=== PATIENT | female | born 1950 | race Hispanic/Latino ===

== ENCOUNTER 2020-01-17 11:26 | Inpatient (IN) | payer OTHER ==
--- NOTE | 2020-01-17 12:02 | RAD REPORT ---
EXAM DESCRIPTION: CT - Head Brain Wo Cont - 01/17/2020 11:54 am CLINICAL HISTORY: unresponsive Headache, drowsiness COMPARISON: No comparisons TECHNIQUE: All CT scans are performed using dose optimization technique as appropriate and may inclu de automated exposure control or mA/KV adjustment according to patient size. FINDINGS: No intracranial hemorrhage, hydrocephalus or extra-axial fluid collection.Mild generalized brain atrophy.No areas of brain edema or evidence of midline shift. The paranasal sinuses and mastoids are clear. The calvarium is intact. IMPRESSION: No acute intracranial abnormality.
--- NOTE | 2020-01-17 12:03 | RAD REPORT ---
EXAM DESCRIPTION: RAD - Chest Single View - 01/17/2020 11:58 am CLINICAL HISTORY: Syncope/collapse Chest pain. COMPARISON: No comparisons FINDINGS: Portable technique limits examination quality. Bilateral pulmonary opacities are present, greater on the left, which may represent interstitial pneu monitis or edema. Tip of the ET tube is just above the kishor. Enteric tube coils in the stomach. The heart is upper limit normal in size.
[2020-01-17 12:07] LABS: Absolute Lymphocytes (CBC) 2.7 K/uL (0.7-4.9); Basophils % 0.5 % (0-1.3); Lymphocytes % 22.9 % (15.3-44.8); MPV 8.5 fL (7.6-11.3); RBC Red Blood Cell Count 4.51 M/uL (3.86-4.86)
[2020-01-17 12:11] LABS: Protime INR 1.01
[2020-01-17] MEDS ORDERED: propofoL 1,000 MG/100 ML VIAL IV ONE (12:39)
[2020-01-17 12:41] LABS: ALT/SGPT 31 U/L (12-78); AST/SGOT 60 U/L (15-37); Albumin 2.3 g/dL (3.4-5.0); Alkaline Phosphatase 155 U/L (45-117); BUN Blood Urea Nitrogen 15 mg/dL (7-18); Bicarbonate 21 mmol/L (21-32); Bilirubin Direct < 0.1 mg/dL (0-0.2); Bilirubin Total 0.2 mg/dL (0.2-1.0); Glucose Level 116 mg/dL (74-106); NT PRO-BNP 17365 pg/mL (<125); Potassium 4.3 mmol/L (3.5-5.1); Sodium Level 140 mmol/L (136-145); Troponin (Emerg Dept Use Only) 0.32 ng/mL (0.0-0.045)
[2020-01-17 13:15] LABS: Arterial Blood Carboxyhemoglob 0.4 % (0-1.5); Blood Gas Oxyhemoglobin 94.6 % (94-97)
[2020-01-17] MEDS ORDERED: HEPARIN/D5W 25,000 UNIT/500 ML BAG IV ONE (13:28)
--- NOTE | 2020-01-17 14:41 | EDPHYS ---
Physician Documentation [facility] Name: Zuly Long Age: 69 yrs Sex: Female : 1950 Arrival Date: 01/17/2020 Time: 11:27 Bed 3 Private MD: ED Physician Esau Wade HPI: 01/16 19:03 This 69 yrs old Female presents to ER via EMS with complaints of Unresponsive, kdr Breathing Difficulty. 19:03 The patient has shortness of breath with light activity. Onset: The symptoms/episode kdr began/occurred suddenly, just prior to arrival. Duration: The symptoms are continuous, and are steadily getting worse. The patient's shortness of breath has no apparent modifying factors. The patient's shortness of breath is aggravated by exertion. Associated signs and symptoms: Pertinent positives:. The patient was out running errands when she suddenly became SOB and then collapsed. EMS had arrived by then and promptly intubated her with little trouble. Her VS improved. On arrival, the was intubated with VS as noted in the nursing notes. Historical: - Allergies: 11:53 No Known Allergies; em - Home Meds: 11:38 carvedilol 12.5 mg oral tab [Active]; pantoprazole 40 mg oral TbEC [Active]; em 17:12 levothyroxine 50 mcg tab [Active]; sulfasalazine 500 mg Oral tab [Active]; Vitamin D em Oral [Active]; - PMHx: 11:38 Hypertension; COPD; em - Immunization history:: Adult Immunizations unknown. - Social history:: Smoking status: unknown. ROS: 19:03 Constitutional: Negative for fever, chills, and weight loss. kdr 19:03 Unable to obtain ROS due to obtunded state, patient is on ventilator. Exam: 12:00 ECG was reviewed by the Attending Physician. kdr 19:03 Constitutional: This is a well developed, well nourished patient who is awake, alert, kdr and in no acute distress. Head/Face: Normocephalic, atraumatic. Eyes: Pupils equal round and reactive to light, extra-ocular motions intact. Lids and lashes normal. Conjunctiva and sclera are non-icteric and not injected. Cornea within normal limits. Periorbital areas with no swelling, redness, or edema. Neck: Trachea midline, no thyromegaly or masses palpated, and no cervical lymphadenopathy. Supple, full range of motion without nuchal rigidity, or vertebral point tenderness. No Meningismus. Chest/axilla: Normal chest wall appearance and motion. Nontender with no deformity. No lesions are appreciated. Cardiovascular: Regular rate and rhythm with a normal S1 and S2. No gallops, murmurs, or rubs. Normal PMI, no JVD. No pulse deficits. Abdomen/GI: Soft, non-tender, with normal bowel sounds. No distension or tympany. No guarding or rebound. No evidence of tenderness throughout. Back: No spinal tenderness. No costovertebral tenderness. Full range of motion. Skin: Warm, dry with normal turgor. Normal color with no rashes, no lesions, and no evidence of cellulitis. MS/ Extremity: Pulses equal, no cyanosis. Neurovascular intact. Full, normal range of motion. 19:03 Respiratory: the patient does not display signs of respiratory distress, Respirations: On vent, Breath sounds: rales, rhonchi, that are moderate, are heard diffusely. Vital Signs: 11:28 BP 145 / 69; Pulse 106; Resp 22 A; Pulse Ox 98% on ETT vent; Weight 68.04 kg; em 12:27 Temp 97.2(R); dh3 12:30 BP 163 / 75; Pulse 101; Resp 14; Pulse Ox 100% on 100% FiO2 ETT vent; hb 13:00 BP 124 / 52; Pulse 66; Resp 14; Pulse Ox 99% on 100% FiO2 ETT vent; hb 13:30 BP 139 / 61; Pulse 81; Resp 14; Pulse Ox 97% on 60% FiO2 ETT vent; hb 14:00 BP 112 / 57; Pulse 64; Resp 14; Pulse Ox 99% on 60% FiO2 ETT vent; hb 15:00 BP 145 / 57; Pulse 75; Resp 14 A; Pulse Ox 100% on 60% FiO2 ETT vent; em 15:55 BP 181 / 65; Pulse 93; Resp 14; Pulse Ox 99% on 60% FiO2 ETT vent; em 17:12 BP 166 / 62; Pulse 86; Resp 18; Pulse Ox 100% on 60% FiO2 ETT vent; em 18:00 BP 153 / 63; Pulse 81; Resp 18; Pulse Ox 98% on 40% FiO2 ETT vent; em 19:14 BP 162 / 58; Pulse 79; Resp 16; Pulse Ox 98% on 60% FiO2 ETT vent; mg2 MDM: 14:41 Patient medically screened. kdr 19:03 Data reviewed: vital signs, nurses notes, lab test result(s), radiologic studies. kdr Counseling: I had a detailed discussion with the patient and/or guardian regarding: the historical points, exam findings, and any diagnostic results supporting the discharge/admit diagnosis, lab results, radiology results. 01/16 11:31 Order name: Basic Metabolic Panel; Complete Time: 12:57 kdr 01/16 11:31 Order name: CBC with Diff; Complete Time: 12:23 kdr 01/16 11:31 Order name: LFT's; Complete Time: 12:57 kdr 01/16 11:31 Order name: Magnesium; Complete Time: 12:57 kdr 01/16 11:31 Order name: NT PRO-BNP; Complete Time: 12:57 kdr 01/16 11:31 Order name: PT-INR; Complete Time: 12:23 kdr 01/16 11:31 Order name: Troponin (emerg Dept Use Only); Complete Time: 12:57 kdr 01/16 13:00 Order name: ABG; Complete Time: 14:21 eb 01/16 14:46 Order name: SARS-COV-2 RT PCR EDMS 01/16 16:12 Order name: CBC with Automated Diff EDMS 01/16 16:12 Order name: CBC with Automated Diff EDMS 01/16 16:13 Order name: Comprehensive Metabolic Panel EDMS 01/16 16:13 Order name: Comprehensive Metabolic Panel EDMS 01/16 16:13 Order name: Lactate EDMS 01/16 16:13 Order name: Lactate EDMS 01/16 16:13 Order name: Lipid Profile EDMS 01/16 16:13 Order name: Lipid Profile EDMS 01/16 16:13 Order name: Magnesium EDMS 01/16 16:13 Order name: Magnesium EDMS 01/16 16:13 Order name: NT PRO-BNP EDMS 01/16 16:13 Order name: NT PRO-BNP EDMS 01/16 16:13 Order name: Phosphorus EDMS 01/16 16:13 Order name: Phosphorus EDMS 01/16 16:13 Order name: Protime (+INR) EDMS 01/16 16:13 Order name: Protime (+INR) [facility] 01/16 16:13 Order name: PTT, Activated Partial Thromb [facility] 01/16 16:13 Order name: PTT, Activated Partial Thromb [facility] 01/16 16:13 Order name: Troponin I [facility] 01/16 16:13 Order name: Troponin I [facility] 01/16 11:31 Order name: XRAY Chest (1 view); Complete Time: 12:23 kdr 01/16 11:31 Order name: EKG; Complete Time: 11:31 kdr 01/16 11:31 Order name: Cardiac monitoring; Complete Time: 11:47 kdr 01/16 11:31 Order name: EKG - Nurse/Tech; Complete Time: 12:02 kdr 01/16 11:31 Order name: IV Saline Lock; Complete Time: 11:47 kdr 01/16 11:31 Order name: Labs collected and sent; Complete Time: 11:47 kdr 01/16 11:31 Order name: O2 Per Protocol; Complete Time: 11:47 kdr 01/16 11:31 Order name: O2 Sat Monitoring; Complete Time: 11:46 kdr 01/16 11:31 Order name: CT Head Brain wo Cont; Complete Time: 12:23 kdr 01/16 14:55 Order name: CT Chest For PE Angio [facility] 01/16 16:12 Order name: CONS Physician Consult [facility] 01/16 16:12 Order name: NPO [facility] 01/16 16:13 Order name: Troponin I [facility] 01/16 16:14 Order name: Respiratory Therapy Consult [facility] 01/16 17:50 Order name: Restraint:Non-Violent; Complete Time: 18:01 [facility] 01/16 19:28 Order name: Ptt, Activated mg2 EC:00 Rate is 104 beats/min. Rhythm is regular, Sinus tachycardia with No ectopy. QRS Isabella is kdr Normal. MA interval is normal. ST Segment is depressed in leads I, II, 1-2mm. ST Segment is depressed in leads V4, V5, V6, 2-5mm. Clinical impression: Cardiac ischemia. Administered Medications: 12:31 Drug: Propofol 5 mcg/kg/min Route: IV; Rate: calculated rate; Site: left antecubital; hb 19:07 Follow up: Response: Patient is sedated; IV Status: Infusion continued upon admission em 13:26 Drug: Heparin ([place] Drip) 12 units/kg/hr - (HEParin 82295 units, D5W 500 ml) em {Co-Signature: hb (Amber Cash RN).} Route: IV; Rate: calculated rate; Site: right hand; 19:07 Follow up: IV Status: Infusion continued upon admission em Disposition: 19:03 Critical Care:. kdr Disposition: 01/17/20 14:41 Hospitalization ordered by Marija Benitez for Inpatient Admission. Preliminary diagnosis are Non-ST elevation (NSTEMI) myocardial infarction, Acute pulmonary edema. - Bed requested for Intensive Care Unit. - Status is Inpatient Admission. mg2 - Condition is Critical. - Problem is new. - Symptoms have improved. Critical care time excluding procedures: 19:03 Critical care time: Bedside Care: 35 minutes, Consultation: 15 minutes, Family kdr Intervention: 10 minutes. Total time: 60 minutes Signatures: Dispatcher [employer] Michelle Galaviz RN RN dw Rittger, Kevin, MD MD [facility] Joseph Camarena RN RN em Amber Cash RN RN Adrián Whiteside RN RN mg2 Amber antony Corrections: (The following items were deleted from the chart) 11:53 11:38 Allergies: Unable to obtain; em em 12:50 12:24 CORONAVIRUS+MR.LAB.BRZ ordered. [facility] 16:23 14:41 Hospitalization Ordered by Marija Benitez MD for Inpatient Admission. Preliminary dw diagnosis is Non-ST elevation (NSTEMI) myocardial infarction; Acute pulmonary edema. Bed requested for Intensive Care Unit. Status is Inpatient Admission. Condition is Critical. Problem is new. Symptoms have improved. [facility] 19:37 16:23 01/17/2020 14:41 Hospitalization Ordered by Marija Benitez MD for Inpatient mg2 Admission. Preliminary diagnosis is Non-ST elevation (NSTEMI) myocardial infarction; Acute pulmonary edema. Bed requested for Intensive Care Unit. Status is Inpatient Admission. Condition is Critical. Problem is new. Symptoms have improved. dw
--- NOTE | 2020-01-17 14:41 | ER ---
Nurse's Notes [facility] Name: Zuly [facility] Age: 69 yrs Sex: Female : 1950 Arrival Date: 01/17/2020 Time: 11:27 Bed 3 Private MD: Diagnosis: Non-ST elevation (NSTEMI) myocardial infarction;Acute pulmonary edema Presentation: 01/16 11:27 Acuity: JOE 1 ss 11:28 Chief complaint: EMS states: called out for shortness of breath, on scene she was em having 1-2 word sentences and was placed on the non re breather, 70's % on RA, while on the non re breather pt went unresponsive, was intubated in the field with a 6.5 tube, tube is 22 at the teeth, pt also became bradycardic in the 40's around 1057, pt was sedated with 250 mg ketamine, 50 mcg fentynal, 80 mg succinycholine, 80 mg rocuronium, EMS also reports right sided incisor popped out while intubating, 16 Fr OGT placed by EMS. Coronavirus screen: Client denies travel out of the [place] in the last 14 days. Initial Sepsis Screen: Does the patient meet any 2 criteria? HR > 90 bpm. Does the patient have a suspected source of infection? No. Patient's initial sepsis screen is negative. Risk Assessment: Do you want to hurt yourself or someone else? Unable to obtain. Onset of symptoms was January 17, 2020. 11:28 Method Of Arrival: EMS: [facility] em 11:28 Acuity: JOE 1 em Historical: - Allergies: 11:53 No Known Allergies; em - Home Meds: 11:38 carvedilol 12.5 mg oral tab [Active]; pantoprazole 40 mg oral TbEC [Active]; em 17:12 levothyroxine 50 mcg tab [Active]; sulfasalazine 500 mg Oral tab [Active]; Vitamin D em Oral [Active]; - PMHx: 11:38 Hypertension; COPD; em - Immunization history:: Adult Immunizations unknown. - Social history:: Smoking status: unknown. Screenin:28 Abuse screen: Denies threats or abuse. Nutritional screening: No deficits noted. em Tuberculosis screening: No symptoms or risk factors identified. Fall Risk None identified. Assessment: 11:28 General: Appears uncomfortable, Behavior is unresponsive. Pain: Unable to use pain em scale. Patient is intubated. Neuro: Level of Consciousness is unresponsive. Cardiovascular: Patient's skin is warm and dry. Rhythm is sinus rhythm. Respiratory: Airway via oral intubation Respiratory effort is even, Respiratory pattern is regular, Ventilator assessment: ET Tube: 6.5 23 cm at the teeth Breath sounds with wheezes bilaterally. Derm: Skin is intact. 11:28 GI: Oral gastric tube in place. em 11:42 Reassessment: wheeled to CT via stretcher. em 12:29 Reassessment: 2 warm blankets placed on pt. em 12:35 Reassessment: covid sent to lab. em 13:25 Reassessment: pt bucking the vent. increased the propofol to 10 mcg/kg/min. em 13:41 Reassessment: No changes from previously documented assessment. pt soiled bed, changed em linen and applied new gown. 14:40 Reassessment: Patient appears in no apparent distress at this time. Patient and/or em family updated on plan of care and expected duration. Pain level reassessed. 15:00 Reassessment: Dr. Perry at bedside. em 15:25 Reassessment: wheeled to CT via stretcher by me and RT. em 16:09 Reassessment: pt more awake moving arms and legs, increased propofol to 20 mcg/kg/min, em pending results from the CT, will go up to ICU after shift change. 17:14 Reassessment: Patient appears in no apparent distress at this time. Patient and/or em family updated on plan of care and expected duration. Pain level reassessed. General: Appears in no apparent distress. comfortable, Behavior is unresponsive. Pain: Unable to use pain scale. Patient is intubated. Neuro: Level of Consciousness is unresponsive. Cardiovascular: Patient's skin is warm and dry. Rhythm is sinus rhythm. Respiratory: Airway via oral intubation Ventilator assessment: ET Tube: 6.5 23 cm Ventilator Mode: Assist Control (AC) Tidal Volume: 460 Respiratory Rate: 14 FiO2: 40% PEEP: 5 HOB > 30 degrees. GI: Oral gastric tube in place. Derm: Skin is intact, is fragile, is thin, Skin is pink, warm \T\ dry. 17:46 Reassessment: pt reaching for the ET tube, increased the propofol to 30 mcg/kg/min, Dr. lyndsey Wade notified, received order for non-violent restraints. 18:37 Reassessment: pt sedated and intubated, skin pink warm and dry, respirations even and em unlabored. 19:36 Reassessment: RT present during the transfer. mg2 Vital Signs: 11:28 BP 145 / 69; Pulse 106; Resp 22 A; Pulse Ox 98% on ETT vent; Weight 68.04 kg; em 12:27 Temp 97.2(R); dh3 12:30 BP 163 / 75; Pulse 101; Resp 14; Pulse Ox 100% on 100% FiO2 ETT vent; hb 13:00 BP 124 / 52; Pulse 66; Resp 14; Pulse Ox 99% on 100% FiO2 ETT vent; hb 13:30 BP 139 / 61; Pulse 81; Resp 14; Pulse Ox 97% on 60% FiO2 ETT vent; hb 14:00 BP 112 / 57; Pulse 64; Resp 14; Pulse Ox 99% on 60% FiO2 ETT vent; hb 15:00 BP 145 / 57; Pulse 75; Resp 14 A; Pulse Ox 100% on 60% FiO2 ETT vent; em 15:55 BP 181 / 65; Pulse 93; Resp 14; Pulse Ox 99% on 60% FiO2 ETT vent; em 17:12 BP 166 / 62; Pulse 86; Resp 18; Pulse Ox 100% on 60% FiO2 ETT vent; em 18:00 BP 153 / 63; Pulse 81; Resp 18; Pulse Ox 98% on 40% FiO2 ETT vent; em 19:14 BP 162 / 58; Pulse 79; Resp 16; Pulse Ox 98% on 60% FiO2 ETT vent; mg2 ED Course: 11:27 Patient arrived in ED. em 11:28 Patient has correct armband on for positive identification. Placed in gown. Bed in low em position. Call light in reach. Side rails up X2. bolt threader on. Pulse ox on. NIBP on. 11:29 Esau Wade MD is Attending Physician. kdr 11:30 Maintain EMS IV. Dressing intact. Good blood return noted. Site clean \T\ dry. Gauge \T\ em site: 20 L AC. 11:30 Garcia cath inserted, using sterile technique, 16 Fr., by ED staff, balloon inflated, to em gravity drainage. 11:36 Triage completed. ss 11:38 Arm band placed on. em 11:46 Joseph Camarena, RN is Primary Nurse. em 11:54 CT Head Brain wo Cont In Process Unspecified. EDMS 11:58 XRAY Chest (1 view) In Process Unspecified. EDMS 12:00 Inbound Customer Service Agent office called/ Dr. Disla will call back. eb 12:02 EKG done, by ED staff, reviewed by Esau Wade MD. em 12:[address] Disla with Dr. Wade for patient consultation. eb 13:25 Inserted saline lock: 22 gauge in right hand, using aseptic technique. em 14:37 Marija Benitez MD is Hospitalizing Provider. kdr 15:39 CT Chest For PE Angio In Process Unspecified. EDMS 19:06 No provider procedures requiring assistance completed. Patient admitted, IV remains in em place. Restraints: 17:50 Non-Violent Restraint: Order obtained. Initiated on January 17, 2020 at 17:50 em Actions/Behavior observed: Confused/disoriented, has impaired decision making, repeated attempts to remove artifical airway/mechanical resp support, Mental status: confused, Cognition: poor judgement, Circulation: Within defined parameters (based on Cardiovascular assessment) Skin integrity: Within defined parameters (based on Integumentary assessment) Range of Motion (ROM): performed. Restraint status: Side rails up x 4 Started. Soft wrist restraint (Right) Started. Soft wrist restraint (Left) Started. Administered Medications: 12:31 Drug: Propofol 5 mcg/kg/min Route: IV; Rate: calculated rate; Site: left antecubital; hb 19:07 Follow up: Response: Patient is sedated; IV Status: Infusion continued upon admission em 13:26 Drug: Heparin ([place] Drip) 12 units/kg/hr - (HEParin 37152 units, D5W 500 ml) em {Co-Signature: hb (Amber Cash RN).} Route: IV; Rate: calculated rate; Site: right hand; 19:07 Follow up: IV Status: Infusion continued upon admission em Outcome: 14:41 Decision to Hospitalize by Provider. kdr 19:06 Admitted to ICU em 19:06 Condition: stable 19:06 Instructed on the need for admit, Demonstrated understanding of instructions. 19:35 Admitted to ICU accompanied by nurse, accompanied by tech, via stretcher, room 6, with mg2 oxygen, on monitor, with chart, Report called to JASON Marie 19:35 Condition: stable 19:35 Instructed on the need for admit, Demonstrated understanding of instructions. 19:37 Patient left the ED. mg2 Signatures: Dispatcher [employer] EDCA Esau Wade MD MD [facility] Joseph Camarena RN RN Cathi Baltazar RN RN Amber Cash RN RN Fatmata Del Castillo [facility] Michele, RN RN mg2 Amber Cash RN Corrections: (The following items were deleted from the chart) 11:53 11:38 Allergies: Unable to obtain; em em 12:50 12:48 CORONAVIRUS+ drawn and sent. [address] 12:59 11:28 Chief complaint: EMS states: called out for shortness of breath, on scene she was em having 1-2 word sentences and was placed on the non re breather, while on the non re breather pt went unresponsive, was intubated in the field with a 6.5 tube, tube is 22 at the teeth, pt also became bradycardic in the 40's around 1057, pt was sedated with 150 mg ketamine, 50 mcg fentynal, 80 mg succinycholine, 80 mg rocuronium, EMS also reports right sided incisor popped out while intubating, 16 Fr OGT placed by EMS em
--- NOTE | 2020-01-17 16:03 | RAD REPORT ---
EXAM DESCRIPTION: CT - Chest For Pe Angio - 01/17/2020 3:39 pm CLINICAL HISTORY: sob COMPARISON: None. TECHNIQUE: Dynamically enhanced axial 3 mm thick images of the chest were obtained during administra tion of <100> mL Isovue 370 IV contrast. Coronal and oblique reconstruction images were generated and reviewed. Exam utilizes a protocol for optimal evaluation of pulmonary arterial tree. Maximum intensity projections 3D imaging was utilized All CT scans are performed using dose optimization technique as appropriate and may include automated exposure control or mA/KV adjustment according to patient size. FINDINGS: A pulmonary embolus is not seen. A thoracic aortic aneurysm is not noted. A pleural effusion is not seen. A pericardial effusion is not seen. Small bilateral pleural effusions with bilateral lower lobe atelectasis. Mild bilateral interstitial lung opacities. An endotracheal tube has its tip in the proximal right mainstem bronchus. A nasogastric tube is prese nt within the stomach. Tip abuts the posterior gastric wall. Bilateral lower neck masses. Left superior mediastinal mass. The trachea is shifted towards the left IMPRESSION: Negative for a pulmonary embolism. Mild bilateral interstitial lung opacities likely mild interstitial pulmonary edema An endotracheal tube has its tip in the proximal right mainstem bronchus. A nasogastric tube is present within the stomach. Tip abuts the posterior gastric wall. Bilateral thyroid masses. Left superior mediastinal mass. This may represent a thyroid goiter. Lympha denopathy probably is less likely. Nonemergent thyroid ultrasound recommended
[2020-01-17] MEDS ORDERED: ACETAMINOPHEN 500 MG TAB PO PRN (16:05)
[2020-01-17] MEDS ORDERED: ONDANSETRON 4 MG/2 ML VIAL IV PRN (16:05)
--- NOTE | 2020-01-17 16:20 | P.HP ---
Certification for Inpatient Patient admitted to: Inpatient With expected LOS: >2 Midnights Patient will require the following post-hospital care: None Practitioner: I am a practitioner with admitting privileges, knowledge of patient current condition, hospital course, and medical plan of care. Services: Services provided to patient in accordance with Admission requirements found in Title 42 Section 412.3 of the Code of Federal Regulations Patient History Date of Service: 01/17/20 Reason for admission: ACUTE RESPIRATORY FAILURE History of Present Illness: Patient is a 69-year-old female who comes into the hospital unresponsive. Patient was short of breath at home and having a hard time with her breathing. EMS was called to the patient's house and when they arrived patient was hypoxic with her oxygen saturation at 70%. Patient was given 100% non-rebreather and her oxygen saturations came up but patient became unresponsive. Patient requi red intubation on the field and was brought into the emergency room. Patient was worked up in the emergency room with CT imaging and started on antibiotics. CT imaging revealed bilateral pneumonia. Patient had COVID-19 testing and she was positive for COVID-19. Patient will be started on nebulizer therapy and steroids as well as antibiotic coverage. Will start patient on rim this severe in the morning. Discussed the case with Pulmonary and they will see the patient as well. At this time patient will be admitted to our intensive care unit in critical condition. Allergies No Known Allergies Allergy (Unverified 01/17/20 20:51) Home Medications: Carvedilol [Coreg] 12.5 mg PO BID 01/17/20 Cholecalciferol (Vitamin D3) [Vitamin D3] 1,250 mcg PO DAILY 01/17/20 Levothyroxine [Synthroid] 50 mcg PO [id number] 01/17/20 Pantoprazole [Protonix Tab] 40 mg PO DAILY 01/17/20 sulfaSALAzine [Sulfasalazine] 2 tab PO BID 01/17/20 - Past Medical/Surgical History -: Crohn's disease -: hypothyroidism -: hypertension Past Surgical History: Unable to obtain - Family History Father Family History: Reviewed- Non-Contributory - Social History Smoking Status: Never smoker Alcohol use: No CD- Drugs: No Review of Systems 10-point ROS is otherwise unremarkable Physical Examination - Vital Signs Temperature: 98 F Blood Pressure: 100/70 Pulse: 110 Respirations: 18 Pulse Ox (%): 70 - Physical Exam General: Other ( patient was intubated and sedated) HEENT: Atraumatic, EOMI, Sclerae nonicteric Neck: Supple, 2+ carotid pulse no bruit, No LAD, Without JVD or thyroid abnormality Respiratory: Diminished, Expiratory wheezes, Rhonchi/gurgles Cardiovascular: Regular rate/rhythm, Normal S1 S2, Systolic murmur Gastrointestinal: Normal bowel sounds, Soft and benign, Non-distended, No tenderness Musculoskeletal: No clubbing, No swelling, No tenderness Integumentary: No rashes Neurological: Abnormal gait, Abnormal speech, Abnormal strength, Abnormal tone, Abnormal sensation Lymphatics: No axilla or inguinal lymphadenopathy - Studies Laboratory Data (last 24 hrs) 01/17/20 12:00: PT 11.9, INR 1.01 01/17/20 12:00: WBC 11.8 H, Hgb 12.5, Hct 39.0, Plt Count 377 01/17/20 12:00: Sodium 140, Potassium 4.3, BUN 15, Creatinine 1.01, Glucose 116 H, Magnesium 2.0, Total Bilirubin 0.2, AST 60 H, ALT 31, Alkaline Phosphatase 155 H Assessment & Plan - Problems (Diagnosis) (1) Acute respiratory failure due to COVID-19 Current Visit: Yes Status: Acute (2) Hypoxemia Current Visit: Yes Status: Acute - Plan Plan: 1. continue ventilator support 2. continue with IV steroids 3. Zithromycin 250 mg IVPB daily 4. Lovenox 40 mg subcu q12h 5. pulmonary consultation for vent support 6. Check labs including ferritin, CRP, D-dimer, lactic acid, LDH, procalcitonin 7. monitor hemodynamics closely 8. sedation and pain control 9. GI prophylaxis Discharge Plan: Home Plan to discharge in: Greater than 2 days - Advance Directives Does patient have a Living Will: No Does patient have a Durable POA for Healthcare: No - Code Status/Comfort Care Code Status Assessed: Yes Code Status: Full Code Critical Care: Yes Time Spent Managing PTS Care (In Minutes): 55
[2020-01-17] MEDS: NA CHLORIDE 0.9% 1,000 ML IV SCH (17:00)
[2020-01-17] MEDS: ENOXAPARIN 40 MG/0.4 ML SQ SCH (17:00)
[2020-01-17] MEDS ORDERED: ENOXAPARIN 40 MG/0.4 ML SQ ONE (17:19)
[2020-01-17] MEDS ORDERED: METHYLPREDNISOLONE 125 MG INJ ONE (17:19)
[2020-01-17] MEDS ORDERED: NA CHLORIDE 0.9% 1,000 ML ONE (17:19)
[2020-01-17] MEDS: METHYLPREDNISOLONE 125 MG INJ IV SCH ×2 (18:00→23:38)
[2020-01-17] MEDS: IPRATROPIUM BROM 0.5MG/2.5ML NEB SCH (20:15)
[2020-01-17] MEDS: ALBUTEROL 2.5 MG/3 ML NEB SOL NEB SCH (20:15)
[2020-01-17] MEDS: CEFTRIAXONE/SWI 1gm 1 GM/10 ML SYR IVP SCH (20:39)
[2020-01-17] MEDS: AZITHROMYCIN IV 500 MG in NA CHLORIDE 0.9% 250 ML IVPB SCH (21:09)
[2020-01-17] MEDS: propofoL 1,000 MG/100 ML VIAL IV PRN (22:13)
[2020-01-17] MEDS ORDERED: FENTANYL CITR 100 MCG/2 ML IV PRN (22:24)
[2020-01-17] MEDS ORDERED: HALOPERIDOL LACT 5 MG/ML INJ IV PRN (22:24)
[2020-01-17] MEDS ORDERED: LORazepam 2 MG/ML VIAL IV PRN (22:24)
[2020-01-17] MEDS ORDERED: MIDAZOLAM HCL 2 MG/2 ML INJ IV PRN (22:24)
[2020-01-18] MEDS: ALBUTEROL 2.5 MG/3 ML NEB SOL NEB SCH ×4 (02:07→20:35)
[2020-01-18] MEDS: IPRATROPIUM BROM 0.5MG/2.5ML NEB SCH ×4 (02:07→20:35)
[2020-01-18] MEDS: propofoL 1,000 MG/100 ML VIAL IV PRN (04:47)
[2020-01-18 04:59] LABS: Protime INR 1.09
[2020-01-18 05:00] LABS: Absolute Lymphocytes (CBC) 0.8 K/uL (0.7-4.9); Basophils % 0.1 % (0-1.3); Hematocrit 43.2 % (36.0-45.0); Lymphocytes % 6.3 % (15.3-44.8); MPV 8.9 fL (7.6-11.3); RBC Red Blood Cell Count 5.05 M/uL (3.86-4.86)
[2020-01-18 05:12] LABS: Albumin 2.2 g/dL (3.4-5.0); Bilirubin Total 0.2 mg/dL (0.2-1.0); Magnesium 2.2 mg/dL (1.8-2.4); Phosphorus 3.8 mg/dL (2.5-4.9); Potassium 3.5 mmol/L (3.5-5.1); Protein, Total 6.9 g/dL (6.4-8.2)
[2020-01-18 05:13] LABS: Troponin I 1.05 ng/mL (0.0-0.045)
[2020-01-18 05:25] LABS: Arterial Blood Carboxyhemoglob 0.6 % (0-1.5); Blood O2 Saturation 96.7 % (92-98.5)
[2020-01-18] MEDS: METHYLPREDNISOLONE 125 MG INJ IV SCH (05:31)
[2020-01-18 05:32] LABS: Blood Morphology Comment NOT SEEN (NOT SEEN); Platelet Estimate ADEQ
[2020-01-18 05:57] VITALS: BMI 25.7
[2020-01-18] MEDS: NA CHLORIDE 0.9% 1,000 ML IV SCH (06:18)
[2020-01-18] MEDS ORDERED: Remdesivir 200 MG in NA CHLORIDE 0.9% 250 ML IV ONE (08:00)
--- NOTE | 2020-01-18 08:44 | RAD REPORT ---
EXAM DESCRIPTION: Aleyda Single View01/18/2020 6:45 am CLINICAL HISTORY: Shortness breath COMPARISON: January 17, 2020 FINDINGS: Endotracheal tube has its tip just above the kishor Nasogastric tube within the stomach The pulmonary edema has mostly resolved The heart remains enlarged
[2020-01-18] MEDS: ENOXAPARIN 40 MG/0.4 ML SQ SCH (09:00)
[2020-01-18] MEDS: AZITHROMYCIN IV 500 MG in NA CHLORIDE 0.9% 250 ML IVPB SCH (09:00)
[2020-01-18] MEDS: ASPIRIN 325 MG TAB PO SCH (09:00)
--- NOTE | 2020-01-18 09:08 | P.CNS ---
Date of Consult: 01/18/20 Reason for Consult: Respiratory failure Chief Complaint: ACUTE RESPIRATORY FAILURE History of Present Illness: Patient is 69 years of age and active smoker history of COPD came to the hospital unresponsive develop shortness of breath currently intubated chest x- ray show bilateral changes most likely she has heart failure troponins elevated BNP also significantly elevated Allergies No Known Allergies Allergy (Unverified 01/17/20 20:51) Home Medications: Carvedilol [Coreg] 12.5 mg PO BID 01/17/20 Cholecalciferol (Vitamin D3) [Vitamin D3] 1,250 mcg PO DAILY 01/17/20 Levothyroxine [Synthroid] 50 mcg PO [id number] 01/17/20 Pantoprazole [Protonix Tab] 40 mg PO DAILY 01/17/20 sulfaSALAzine [Sulfasalazine] 2 tab PO BID 01/17/20 - Past Medical/Surgical History -: Crohn's disease -: hypothyroidism -: hypertension -: COPD - Family History Father Family History: Reviewed- Non-Contributory - Social History Smoking Status: Unknown if ever smoked Alcohol use: No CD- Drugs: No Review of Systems Unremarkable Physical Examination Temp Pulse Resp BP Pulse Ox 96.6 F L 65 14 141/52 H 100 01/18/20 08:00 01/18/20 08:00 01/18/20 08:00 01/18/20 08:00 01/18/20 08:00 General: Mild distress Respiratory: Expiratory wheezes Cardiovascular: No edema, Normal S1 S2 Gastrointestinal: Normal bowel sounds, Soft and benign Musculoskeletal: No clubbing, No contractures Integumentary: No rashes, No significant lesion Laboratory Data (last 24 hrs) 01/17/20 12:00: PT 11.9, INR 1.01 01/17/20 12:00: WBC 11.8 H, Hgb 12.5, Hct 39.0, Plt Count 377 01/17/20 12:00: Sodium 140, Potassium 4.3, BUN 15, Creatinine 1.01, Glucose 116 H, Magnesium 2.0, Total Bilirubin 0.2, AST 60 H, ALT 31, Alkaline Phosphatase 155 H - Problems (1) Respiratory center failure Current Visit: Yes Status: Acute Plan: Patient is 69 years of age admitted with acute respiratory distress I suspect that she may had an ischemic event with heart failure for queen virus recommend Lasix bronchodilators and wean off the ventilator Consult EKG shows no ischemic changes apart from LVH CT scan reviewed no evidence of pulmonary embolism
[2020-01-18] MEDS: CEFTRIAXONE/SWI 1gm 1 GM/10 ML SYR IVP SCH ×2 (09:23→20:31)
[2020-01-18] MEDS: FAMOTIDINE 20 MG/2 ML VIAL IV SCH ×2 (09:24→20:31)
[2020-01-18] MEDS: ENOXAPARIN 60 MG/0.6 ML SQ SCH ×2 (09:24→20:32)
[2020-01-18] MEDS ORDERED: FUROSEMIDE 40 MG/4 ML VIAL IV ONE (10:30)
--- NOTE | 2020-01-18 12:22 | CON ---
Date of Consultation: 01/18/2020 Reason For Consultation: Elevated troponin and respiratory failure. History Of Present Illness: A 69-year-old female, who was brought into the hospital in an unresponsi ve state. Apparently, she had an episode of difficulty breathing and called ambulance where she was found hypoxic in the 70s, placed on non-rebreather and the patient became unresponsive, required intu bation in the field, brought into the emergency room, intubated. She was evaluated in the ER by EKG. There was no ST elevation, however, she had a significant LVH with repolarization abnormalities. T he patient was admitted to ICU and being weaned off the ventilator, evaluated her by bedtime now and she claimed that she had some chest pressure prior to the event, but she has no chest pain. Now, she is anxious to get the tube out and she has a presumptive positive COVID test, not confirmed. Past Medical History: As per the chart, Crohn disease, hypothyroidism, hypertension. Medications: Refer to reconciliation sheet for detailed list. Allergies: NO KNOWN DRUG ALLERGIES. Social History: Does not smoke or drink. Does not use any drugs. Review of Systems: All systems reviewed were negative except for mentioned in the HPI. Physical Examination: Vital Signs: Temperature is 98.4, pulse is 94, breathing at 16, blood pressure 153/56, saturating 99 %. General: This is a middle-aged female, appears anxious due to being on the vent while awake. Head and Neck: Pupils are equal and reactive to light. No JVD. No cyanosis. Neck: Supple. Thyroid not enlarged. Lungs: Crackles in both bases. No accessory muscle use or muscle retraction. Heart: Regular rate and rhythm. No extra sounds. Abdomen: Soft, nontender. Bowel sounds positive. No organomegaly. No masses or hernia. No rigidi ty or rebound. Extremities: No clubbing, cyanosis. Intact pulses. Skin: No rashes. Neurologic: Alert, awake with no acute focal deficits appreciated. Investigations: Troponin peaked at 1.91, now it [place] 1[place] [address], creatinine 0.91, white blood cell count is 12.8. CT scan of the chest, no PE, but there is pulmonary edema. Assessment And Plan: 1.Acute hypoxic respiratory failure due to acute pulmonary edema, likely due to non-ST elevation leyda cardial infarction. She has no chest pain now and troponin is trending down. The patient is being w eaned off the ventilator in the ICU. Continue supportive measures from that regard and the patient i s being evaluated by Pulmonary. 2.Acute non-ST elevation myocardial infarction. Troponin is trending down. No chest pain. There i s a possibility that this patient has a positive COVID, but the picture is more likely an acute heart failure and a non-ST elevation myocardial infarction. Recommend anticoagulation with Lovenox 1 mg/k g subcu q.12 hours. To hold the evening dose on Monday and schedule coronary angiogram for Monday mo rn. Recommend aspirin, oxygen therapy, and blood pressure control and please obtain an echocardio gram. Thank you for the consultation. /YEVGENIY Voice ID: [id number] Report ID: [id number]
[2020-01-18] MEDS: carvediloL 12.5 MG TAB PO SCH ×2 (13:37→18:05)
[2020-01-18] MEDS ORDERED: FUROSEMIDE 20 MG/ 2ML VIAL IV SCH (17:00)
[2020-01-18] MEDS: METHYLPREDNISOLONE 40 MG INJ IV SCH (18:04)
[2020-01-18] MEDS: FUROSEMIDE 40 MG/4 ML VIAL IV SCH (18:05)
[2020-01-18] MEDS: HYDRALAZINE HCL 20 MG/ML VIAL IV PRN (21:27)
[2020-01-19] MEDS: METHYLPREDNISOLONE 40 MG INJ IV SCH ×3 (00:42→17:35)
[2020-01-19] MEDS: IPRATROPIUM BROM 0.5MG/2.5ML NEB SCH ×4 (02:55→19:35)
[2020-01-19] MEDS: ALBUTEROL 2.5 MG/3 ML NEB SOL NEB SCH ×4 (02:55→19:35)
[2020-01-19] MEDS: carvediloL 12.5 MG TAB PO SCH ×2 (05:25→17:35)
[2020-01-19 06:30] LABS: Magnesium 1.9 mg/dL (1.8-2.4); Phosphorus 3.4 mg/dL (2.5-4.9); Potassium 3.3 mmol/L (3.5-5.1)
[2020-01-19] MEDS: FUROSEMIDE 40 MG/4 ML VIAL IV SCH (07:52)
[2020-01-19] MEDS: FAMOTIDINE 20 MG/2 ML VIAL IV SCH (07:52)
[2020-01-19] MEDS: CEFTRIAXONE/SWI 1gm 1 GM/10 ML SYR IVP SCH ×2 (07:52→20:06)
[2020-01-19] MEDS: ASPIRIN 325 MG TAB PO SCH (07:52)
[2020-01-19] MEDS: ENOXAPARIN 60 MG/0.6 ML SQ SCH (07:52)
[2020-01-19] MEDS ORDERED: POTASSIUM CL SA 10 MEQ TAB PO ONE (09:00)
--- NOTE | 2020-01-19 10:15 | P.PN ---
Subjective Date of Service: 01/18/20 Patient is doing better. She was extubated today. She is awake and alert and she is having no complaints. Clinically appearing to be doing much better. Troponins were elevated and spoke with Cardiology and will be doing cardiac catheterization Monday. Echocardiogram in the morning as well as we do not have a electronic sales and service technician over the weekend. Review of Systems 10-point ROS is otherwise unremarkable Physical Examination - Vital Signs Temperature: 98.7 F Blood Pressure: 148/51 Pulse: 73 Respirations: 20 Pulse Ox (%): 94 - Physical Exam General: Alert, In no apparent distress, Oriented x3 HEENT: Atraumatic, PERRLA, EOMI Neck: Supple, JVD not distended Respiratory: Clear to auscultation bilaterally, Normal air movement Cardiovascular: Regular rate/rhythm, Normal S1 S2, No murmurs Gastrointestinal: Normal bowel sounds, Soft and benign, Non-distended, No tenderness Musculoskeletal: No clubbing, No swelling, No tenderness Neurological: Normal tone, Sensation intact, Cranial nerves 3-12 intact Lymphatics: No axilla or inguinal lymphadenopathy - Studies Medications List Reviewed: Yes Assessment & Plan - Problems (Diagnosis) (1) Acute respiratory failure due to COVID-19 Current Visit: Yes Status: Acute (2) Hypoxemia Current Visit: Yes Status: Acute (3) NSTEMI (non-ST elevated myocardial infarction) Current Visit: Yes Status: Acute - Plan Plan: Continue with plan of care as mentioned below 1. Plan for heart catheterization Monday 2. Wean off the steroids 3. May Dc antibiotics is afebrile for the next 24-48 hr 4. Lovenox 40 mg subcu q12h 5. Appreciate Cardiology and pulmonary assistance 6. monitor hemodynamics closely 7. Continue cardiac meds including anti-platelet therapy and statin therapy and strict blood pressure control 8. GI prophylaxis Discharge Plan: Home Plan to discharge in: Greater than 2 days - Advance Directives Does patient have a Living Will: No Does patient have a Durable POA for Healthcare: No - Code Status/Comfort Care Code Status: Full Code Critical Care: No Time Spent Managing PTS Care (In Minutes): 35
[2020-01-19] MEDS: CLOPIDOGREL 75 MG TABLET PO SCH (11:40)
--- NOTE | 2020-01-19 13:27 | P.PN ---
Subjective Date of Service: 01/19/20 Patient is doing well today. There is no new complaints. Patient does have some forgetfulness. But I am not sure if this is normal. Patient was admitted to the hospital intubated after having episodes of nausea and vomiting wall in her vehicle. She got short of breath and I believe it was her son who pulled over and called EMS. EMS called the ambulance and she had to be intubated. Patient was extubated the following [id number] has done well. Plan for heart catheterization. COVID-19 repeat testing is pending. If cardiac workup is negative tomorrow then should be able go home. Review of Systems 10-point ROS is otherwise unremarkable Physical Examination - Vital Signs Temperature: 98.7 F Blood Pressure: 148/51 Pulse: 73 Respirations: 20 Pulse Ox (%): 94 - Physical Exam General: Alert, In no apparent distress, Oriented x3 Respiratory: Clear to auscultation bilaterally, Normal air movement Cardiovascular: Regular rate/rhythm, Normal S1 S2, No murmurs Gastrointestinal: Normal bowel sounds, Soft and benign, Non-distended, No tenderness Musculoskeletal: No clubbing, No swelling, No tenderness Neurological: Normal speech, Cranial nerves 3-12 intact - Studies Medications List Reviewed: Yes Assessment & Plan - Problems (Diagnosis) (1) Acute respiratory failure due to COVID-19 Current Visit: Yes Status: Acute (2) Hypoxemia Current Visit: Yes Status: Acute (3) NSTEMI (non-ST elevated myocardial infarction) Current Visit: Yes Status: Acute - Plan Plan: Continue with plan of care as mentioned below 1. Plan for heart catheterization Monday 2. Weaned off the steroids 3. Do not feel that patient needs antibiotics and the further. 4. Lovenox 40 mg subcu daily 5. Appreciate Cardiology and pulmonary assistance 6. monitor hemodynamics closely 7. Continue cardiac meds including anti-platelet therapy and statin therapy and strict blood pressure control 8. GI prophylaxis Discharge Plan: Home Plan to discharge in: 48 Hours - Advance Directives Does patient have a Living Will: No Does patient have a Durable POA for Healthcare: No - Code Status/Comfort Care Code Status: Full Code Critical Care: No Time Spent Managing PTS Care (In Minutes): 35
[2020-01-19] MEDS: ATORVASTATIN 40 MG TAB PO SCH (20:06)
--- NOTE | 2020-01-19 20:20 | P.PN ---
Subjective Date of Service: 01/19/20 Chief Complaint: Non STEMI Subjective: Improving (Patient is doing better was extubated yesterday no new complaints scheduled to have a cardiac catheterization done tomorrow) Review of Systems Deferred Physical Examination - Vital Signs Temperature: 98.5 F Blood Pressure: 164/54 Pulse: 78 Respirations: 23 Pulse Ox (%): 94 - Studies Medications List Reviewed: Yes Assessment & Plan - Problems (Diagnosis) (1) Respiratory center failure Current Visit: Yes Status: Acute Plan: Patient is doing much better extubated probably has underlying COPD with coronary artery disease labs reviewed troponins have declined change to p.o. prednisone also had an inhaler Dc antibiotics no evidence of queen virus pneumonia room-air oxygenation is satisfactory possible discharge after cardiac catheterization add inhaled bronchodilator
[2020-01-19] MEDS: predniSONE 20 MG TAB PO SCH (21:58)
[2020-01-19] MEDS: HYDRALAZINE HCL 20 MG/ML VIAL IV PRN (23:10)
[2020-01-20] MEDS: ALBUTEROL 2.5 MG/3 ML NEB SOL NEB SCH ×2 (02:35→08:00)
[2020-01-20] MEDS: IPRATROPIUM BROM 0.5MG/2.5ML NEB SCH ×2 (02:35→08:00)
[2020-01-20] MEDS: carvediloL 12.5 MG TAB PO SCH ×2 (05:12→16:56)
[2020-01-20] MEDS: ASPIRIN 325 MG TAB PO SCH (05:12)
[2020-01-20] MEDS: predniSONE 20 MG TAB PO SCH ×2 (05:12→19:58)
[2020-01-20] MEDS: CLOPIDOGREL 75 MG TABLET PO SCH (05:12)
[2020-01-20 06:08] LABS: Absolute Lymphocytes (CBC) 0.8 K/uL (0.7-4.9); Basophils % 0.3 % (0-1.3); Hematocrit 36.5 % (36.0-45.0); Lymphocytes % 6.7 % (15.3-44.8); RBC Red Blood Cell Count 4.37 M/uL (3.86-4.86)
[2020-01-20] MEDS: HYDRALAZINE HCL 20 MG/ML VIAL IV PRN ×2 (06:26→19:58)
[2020-01-20 06:30] LABS: Magnesium 2.3 mg/dL (1.8-2.4); Phosphorus 2.8 mg/dL (2.5-4.9); Potassium 3.9 mmol/L (3.5-5.1)
[2020-01-20] MEDS ORDERED: FUROSEMIDE 20 MG/ 2ML VIAL IV ONE (07:40)
[2020-01-20] MEDS: SULFASALAZINE 500 MG E.C. TAB PO SCH ×2 (10:28→19:58)
[2020-01-20] MEDS: PANTOPRAZOLE 40MG TABLET PO SCH (10:29)
[2020-01-20] MEDS: VITAMIN D 1000 UNIT TAB PO SCH (10:29)
--- NOTE | 2020-01-20 12:26 | P.PN ---
Subjective Date of Service: 01/20/20 Primary Care Provider: Dr. Solis Chief Complaint: Non STEMI Subjective: Improving, Doing well Physical Examination - Vital Signs Temperature: 99.0 F Blood Pressure: 155/58 Pulse: 74 Respirations: 22 Pulse Ox (%): 93 - Physical Exam General: Alert, In no apparent distress, Oriented x3, Cooperative HEENT: Atraumatic Neck: Supple Respiratory: Other (Patient breathing appropriately ) Cardiovascular: Normal pulses Neurological: Normal speech, Normal strength at 5/5 x4 extr, Normal tone, Normal affect - Studies Medications List Reviewed: Yes Assessment & Plan Discharge Plan: Home Plan to discharge in: 24 Hours Physician Review Additional Text: Impression: Acute hypoxic respiratory failure with acute pulmonary edema and NSTEMI suspect underlying acute on chronic systolic CHF with possible COPD exacerbation complicated with COVID 19 infection Hypertension Hyperlipidemia Hypothyroidism Crohn's colitis Plan: Acute hypoxic respiratory failure with acute pulmonary edema and NSTEMI suspect underlying acute on chronic systolic CHF with possible COPD exacerbation complicated with COVID 19 infection: Patient much improved. Patient to have heart catheterization today to further evaluate her condition. Suspect underlying CAD. Patient may require heart catheterization stenting. Await Cardiology findings. Case discussed with pulmonology. Will continue with current treatment. Will provide medication for COPD. Continue with oral steroid medication at this time for possible underlying COPD exacerbation as well. Continue to wean off oxygen. Patient may require home oxygen at discharge. Continue diuresis. Anticipate improvement over the next 24 hr with possible discharge. Hypertension: Continue home medication. Will monitor and adjust appropriately. Hyperlipidemia: Continue medication Hypothyroidism: Continue medication. Crohn's colitis: Continue medication. Time Spent Managing Pts Care (In Minutes): 55
[2020-01-20] MEDS ORDERED: ALBUTEROL 2.5 MG/3 ML NEB SOL NEB PRN (12:28)
[2020-01-20] MEDS ORDERED: IPRATROPIUM BROM 0.5MG/2.5ML NEB PRN (12:28)
[2020-01-20] MEDS ORDERED: FUROSEMIDE 20 MG TABLET PO SCH (17:00)
[2020-01-20] MEDS ORDERED: HEPARIN 5000 UNIT/ML 1 ML VIAL ONE (17:49)
[2020-01-20] MEDS ORDERED: ATROPINE SULF 1 MG/10 ML SYR IV ONE (17:49)
[2020-01-20] MEDS ORDERED: HEPA 1000U/500MLS 1,000 UNIT/500 ML BAG IV ONE (17:49)
[2020-01-20] MEDS ORDERED: VERAPAMIL HCL 5 MG/2 ML VIAL IV ONE (17:49)
[2020-01-20] MEDS ORDERED: MIDAZOLAM HCL 2 MG/2 ML INJ ONE (17:49)
[2020-01-20] MEDS ORDERED: FENTANYL CITR 100 MCG/2 ML ONE (17:49)
[2020-01-20] MEDS ORDERED: NA CHLORIDE 0.9% 500 ML ONE (17:50)
[2020-01-20] MEDS ORDERED: ACETAMINOPHEN 325 MG TABLET PO PRN (18:54)
[2020-01-20] MEDS ORDERED: NITROGLYCERIN 0.4 MG/TAB SL PRN (18:55)
[2020-01-20] MEDS ORDERED: NA CHLORIDE 0.9% 1,000 ML IV SCH (19:00)
[2020-01-20] MEDS: ATORVASTATIN 40 MG TAB PO SCH (19:58)
--- NOTE | 2020-01-21 02:21 | OP ---
Date of Procedure: 01/20/2020 Surgeon: STEVAN MCOCLLUM Procedure Performed: Selective coronary angiogram. Indication: Non-ST elevation myocardial infarction. Access: Right radial artery 6-Wallisian closed with TR band. Complications: None. Total Sedation Time: 10 minutes. Description Of Procedure: After risks, benefits, and alternatives were explained to the patient, she agreed to the procedure and signed informed consent. She was brought into the cardiac catheterizati on laboratory, prepped and draped in usual sterile fashion. We used fentanyl and Versed in increment al doses to achieve adequate moderate sedation. Then, I accessed right radial artery using pediatric micropuncture kit and placed a 6-Wallisian slender sheath. We took a 5-Wallisian [place] catheter over the wire into the aortic root, engaged left main coronary artery, took standard views in the right queen ry artery using same catheter and took standard views, and removed the catheter and wire, and removed the sheath and closed the TR band with good hemostasis. Findings: 1.Left main is normal. 2.LAD, large and normal. 3.Left circumflex is normal. 4.RCA dominant circulation is normal. Impression: Normal coronary arteries. Recommendations: Medical management. /MODL Voice ID: [id number] Report ID: [id number]
[2020-01-21] MEDS ORDERED: LEVOTHYROXINE SOD 0.05 MG TABLET PO SCH (06:00)
[2020-01-21 06:53] LABS: Potassium 4.3 mmol/L (3.5-5.1)
[2020-01-21] MEDS: PANTOPRAZOLE 40MG TABLET PO SCH (07:54)
[2020-01-21] MEDS: carvediloL 12.5 MG TAB PO SCH (07:54)
[2020-01-21 08:34] LABS: Potassium 4.2 mmol/L (3.5-5.1)
--- NOTE | 2020-01-21 08:55 | ECHO ---
HEIGHT: 5 ft 0 in WEIGHT: 132 lb 0 oz DATE OF STUDY: 01/20/[address]: Leo Disla 2-DIMENSIONAL: YES M.MODE: YES DOPPLER: YES COLOR FLOW: YES TDS: PORTABLE: DEFINITY: BUBBLE STUDY: DIAGNOSIS: TROPONIN CARDIAC HISTORY: CATHERIZATION: NO SURGERY: NO PROSTHETIC VALVE: NO PACEMAKER: NO MEASUREMENTS (cm) DIASTOLIC (NORMALS) SYSTOLIC (NORMALS) IVSd 1.3 (0.6-1.2) LA Diam 3.3 (1.9-4.0) LVEF 51% LVIDd 4.4 (3.5-5.7) LVIDs 3.3 (2.0-3.5) %FS 26% LVPWd 1.3 (0.6-1.2) Ao Diam 1.9 (2.0-3.7) 2 DIMENSIONAL ASSESSMENT: RIGHT ATRIUM: NORMAL LEFT ATRIUM: NORMAL RIGHT VENTRICLE: NORMAL LEFT VENTRICLE: NORMAL TRICUSPID VALVE: MILD TRICUSPID REGURGITATION MITRAL VALVE: MILD MITRAL REGURGITATION PULMONIC VALVE: MILD PULMONARY INSUFFIENCY AORTIC VALVE: MODERATE AORTIC INSUFFIENCY PERICARDIAL EFFUSION: NONE AORTIC ROOT: NORMAL LEFT VENTRICULAR WALL MOTION: NORMAL DOPPLER/COLOR FLOW: SEE BELOW COMMENTS: NORMAL LEFT VENTRICULAR EJECTION FRACTION 55-60% WITH NORMAL WALL MOTION. MILD LEFT VENTRICULAR HYPERTROPHY. MILD TRICUSPID REGURGITATION, MILD MITRAL REGURGITATION, MODERATE AORTIC INSUFFIENCY, MILD PULMONARY INSUFFIENCY. MODERATE PULMONARY HYPERTENSION WITH RIGHT VENTRICULAR SYSTOLIC PRESSURE OF 45-50 mmHg. TECHNOLOGIST: JASBIR ROSAS
[2020-01-21] MEDS: VITAMIN D 1000 UNIT TAB PO SCH (09:00)
[2020-01-21] MEDS: ASPIRIN 325 MG TAB PO SCH (09:18)
[2020-01-21] MEDS: SULFASALAZINE 500 MG E.C. TAB PO SCH (09:18)
[2020-01-21] MEDS: CLOPIDOGREL 75 MG TABLET PO SCH (09:19)
[2020-01-21] MEDS: predniSONE 20 MG TAB PO SCH (09:21)
--- NOTE | 2020-01-21 09:27 | RAD REPORT ---
EXAM DESCRIPTION: RAD - Chest Single View - 01/21/2020 9:12 am CLINICAL HISTORY: follow up pulmonary edema Chest pain. COMPARISON: Chest Single View dated 01/18/2020; Chest Single View dated 01/17/2020 FINDINGS: Portable technique limits examination quality. Opacity is present in the medial left lung base likely representing atelectasis or infiltrate/ pneumo chad. The lungs are otherwise clear. The heart is normal in size. No displaced fractures. IMPRESSION: Medial left lung base atelectasis versus pneumonia pattern.
--- NOTE | 2020-01-21 09:30 | P.DS ---
Admission Date: 01/17/20 Discharge Date: 01/21/20 Primary Care Provider: Dr. Solis Disposition: ROUTINE DISCHARGE Discharge Condition: GOOD Reason for Admission: Non STEMI Consultations: Cardiology-Dr. Mccollum Pulmonary- Procedures: CT Scan: FINDINGS: A pulmonary embolus is not seen. A thoracic aortic aneurysm is not noted. A pleural effusion is not seen. A pericardial effusion is not seen. Small bilateral pleural effusions with bilateral lower lobe atelectasis. Mild bilateral interstitial lung opacities. An endotracheal tube has its tip in the proximal right mainstem bronchus. A nasogastric tube is present within the stomach. Tip abuts the posterior gastric wall. Bilateral lower neck masses. Left superior mediastinal mass. The trachea is shifted towards the left IMPRESSION: Negative for a pulmonary embolism. Mild bilateral interstitial lung opacities likely mild interstitial pulmonary edema An endotracheal tube has its tip in the proximal right mainstem bronchus. A nasogastric tube is present within the stomach. Tip abuts the posterior gastric wall. Bilateral thyroid masses. Left superior mediastinal mass. This may represent a thyroid goiter. Lymphadenopathy probably is less likely. Nonemergent thyroid ultrasound recommended ECHO: EF 51% LEFT VENTRICULAR WALL MOTION: NORMAL DOPPLER/COLOR FLOW: SEE BELOW COMMENTS: NORMAL LEFT VENTRICULAR EJECTION FRACTION 55-60% WITH NORMAL WALL MOTION. MILD LEFT VENTRICULAR HYPERTROPHY. MILD TRICUSPID REGURGITATION, MILD MITRAL REGURGITATION, MODERATE AORTIC INSUFFIENCY, MILD PULMONARY INSUFFIENCY. MODERATE PULMONARY HYPERTENSION WITH RIGHT VENTRICULAR SYSTOLIC PRESSURE OF 45- 50 mmHg. Heart Cath: Date of Procedure: 01/20/2020 Surgeon: STEVAN MCCOLLUM Procedure Performed: Selective coronary angiogram. Indication: Non-ST elevation myocardial infarction. Access: Right radial artery 6-[place] closed with TR band. Complications: None. Findings: 1. Left main is normal. 2. LAD, large and normal. 3. Left circumflex is normal. 4. RCA dominant circulation is normal. Impression: Normal coronary arteries. Recommendations: Medical management. Medical Problem List: Acute hypoxic respiratory failure with acute pulmonary edema and NSTEMI suspect underlying acute on chronic diastolic CHF with possible COPD exacerbation complicated with COVID 19 infection Hypertension Hyperlipidemia Hypothyroidism Crohn's colitis CT scan showing bilateral thyroid masses, left superior mediastinal mass Brief History of Present Illness: 69-year-old female presented to the emergency room with increasing shortness of breath. Patient found to have acute respiratory failure. Initial CT scan showed no pulmonary embolism. Pulmonary edema was suspected. Patient was also positive for COVID 19. Patient was admitted for further evaluation and treatment. Patient required intubation in the ER. Hospital Course: Patient presented with acute hypoxic respiratory failure. Patient required intubation. The patient was seen by Pulmonology and Cardiology. The patient was positive for COVID. CT scan showed no pulmonary embolism but pulmonary edema was suspected. The patient was diuresed with significant improvement. The patient was eventually extubated. There was some suspicion of COPD exacerbation due to her history of tobacco abuse. Troponin was elevated indicating NSTEMI. Cardiology recommended heart catheterization to further evaluate. Echocardiogram showed normal ejection fraction. Heart catheterization showed normal coronaries. Cardiology recommended to continue medical management. At discharge patient without significant shortness of breath. No need for home oxygen. Pulmonology suspects respiratory failure related to acute on chronic diastolic CHF with COPD exacerbation. Even though the patient was positive for COVID 19, pulmonology suspects this is not active. At discharge for her CHF, the patient will continue with a 1500 cc per day fluid restriction and low-salt diet. The patient will need to monitor her weight daily. If her weight increases by more than 5 lb she is to contact cardiology or PCP for further recommendation. At discharge the patient will continue with Lasix 40 mg daily and aspirin 325 mg daily. For her COPD, the patient will continue with prednisone 20 mg 1 pill twice daily for 7 days then 1 pill once daily for 7 days. The patient will be started on COPD medication-Symbicort 2 puffs twice daily and Pro air 2 puffs 3 times a day as needed for shortness of breath. Patient will be provided CHF, COPD and COVID education. Patient will continue with fase mask use, hand washing and social distancing. Patient will be provided CDC guidelines on isolations. Recommend follow up with cardiology in 2-4 weeks to follow up this hospitalization. Recommend follow up with pulmonology in 1 week to follow up this hospitalization and continue her care. Patient with hypertension. Medications was adjusted. Additional medication includes lisinopril. At discharge patient will continue with carvedilol 12.5 mg 1 pill twice daily and lisinopril 10 mg daily. Recommend to maintain blood pressure less than 130/80. Further adjustment in medication can be done by her PCP or cardiology. Patient with hypothyroidism. At discharge patient will continue with levothyroxine 50 mcg daily. Patient with Crohn's colitis. At discharge she will continue with sulfasalazine as directed. Patient with GERD. At discharge she will continue with Protonix [address] scan revealed bilateral thyroid masses and left superior mediastinal mass. It is recommended as an outpatient that she had a thyroid ultrasound to further evaluate this. This can be done with the help of her PCP. Patient with hyperlipidemia. LDL 99. At discharge she will continue with Lipitor 10 mg daily. Recommend to recheck fasting lipid panel in 4-6 weeks to monitor progress. Further adjustment can be done by her PCP or cardiology. Vital Signs/Physical Exam: Temp Pulse Resp BP Pulse Ox 97.1 F 60 20 188/56 H 96 01/21/20 04:00 01/21/20 07:54 01/21/20 06:00 01/21/20 07:54 01/21/20 06:00 General: Alert, In no apparent distress, Oriented x3, Cooperative HEENT: Atraumatic Neck: Supple Respiratory: Clear to auscultation bilaterally, Normal air movement Cardiovascular: Normal pulses, Regular rate/rhythm Gastrointestinal: No guarding Neurological: Normal speech, Normal strength at 5/5 x4 extr, Normal tone, Normal affect Laboratory Data at Discharge: WBC 11.7 K/uL (4.3-10.9) H 01/20/20 05:55 Hgb 12.1 g/dL (12.0-15.0) 01/20/20 05:55 Hct 36.5 % (36.0-45.0) D 01/20/20 05:55 Plt Count 291 K/uL (152-406) 01/20/20 05:55 PT 12.8 SECONDS (9.5-12.5) H 01/18/20 04:10 INR 1.09 01/18/20 04:10 APTT 30.5 SECONDS (24.3-36.9) 01/18/20 04:10 Sodium 138 mmol/L (136-145) 01/21/20 07:52 Potassium 4.2 mmol/L (3.5-5.1) 01/21/20 07:52 BUN 31 mg/dL (7-18) H 01/21/20 07:52 Creatinine 0.82 mg/dL (0.55-1.3) D 01/21/20 07:52 Glucose 106 mg/dL (74-106) 01/21/20 07:52 Phosphorus 2.8 mg/dL (2.5-4.9) 01/20/20 05:55 Magnesium 2.3 mg/dL (1.8-2.4) 01/20/20 05:55 Total Bilirubin 0.2 mg/dL (0.2-1.0) 01/18/20 04:10 AST 24 U/L (15-37) 01/18/20 04:10 ALT 26 U/L (12-78) 01/18/20 04:10 Alkaline Phosphatase 125 U/L (45-117) H 01/18/20 04:10 Troponin I 1.05 ng/mL (0.0-0.045) H* 01/18/20 04:10 Triglycerides 91 mg/dL (<150) 01/18/20 04:10 Cholesterol 179 mg/dL (<200) 01/18/20 04:10 HDL Cholesterol 62 mg/dL (40-60) H 01/18/20 04:10 Cholesterol/HDL Ratio 2.89 01/18/20 04:10 Home Medications: Carvedilol [Coreg] 12.5 mg PO BID 01/17/20 Cholecalciferol (Vitamin D3) [Vitamin D3] 1,250 mcg PO DAILY 01/17/20 Levothyroxine [Synthroid*] 50 mcg PO [id number] 01/17/20 Pantoprazole [Protonix Tab*] 40 mg PO DAILY 01/17/20 sulfaSALAzine [Sulfasalazine] 2 tab PO BID 01/17/20 Albuterol Sulfate [Proair Hfa] 8.5 gm IH TID PRN #1 hfa.aer.ad 01/21/20 Aspirin Tab [Jareth Aspirin*] 325 mg PO DAILY #90 tab 01/21/20 Atorvastatin Calcium [Lipitor] 10 mg PO BEDTIME #30 tab 01/21/20 Budesonide/Formoterol Fumarate [Symbicort 160-4.5 Mcg Inhaler] 2 puff IH BID #1 hfa.aer.ad 01/21/20 Furosemide [Lasix] 40 mg PO DAILY #30 tab 01/21/20 lisinopriL [Prinivil*] 10 mg PO DAILY #30 tab 01/21/20 predniSONE [Prednisone*] 20 mg PO SEECOM #21 tab 01/21/20 New Medications: Aspirin Tab [Jareth Aspirin*] 325 mg PO DAILY #90 tab Furosemide [Lasix] 40 mg PO DAILY #30 tab Atorvastatin Calcium [Lipitor] 10 mg PO BEDTIME #30 tab predniSONE [Prednisone*] 20 mg PO SEECOM #21 tab lisinopriL [Prinivil*] 10 mg PO DAILY #30 tab Albuterol Sulfate [Proair Hfa] 8.5 gm IH TID PRN #1 hfa.aer.ad PRN Reason: Shortness Of Breath Budesonide/Formoterol Fumarate [Symbicort 160-4.5 Mcg Inhaler] 2 puff IH BID #1 hfa.aer.ad Patient Discharge Instructions: 1. Recommend follow up with PCP in 1 week to follow up this hospitalization. 2. Patient presented with acute hypoxic respiratory failure. Patient required intubation. The patient was seen by Pulmonology and Cardiology. The patient was positive for COVID. CT scan showed no pulmonary embolism but pulmonary edema was suspected. The patient was diuresed with significant improvement. The patient was eventually extubated. There was some suspicion of COPD exacerbation due to her history of tobacco abuse. Troponin was elevated indicating NSTEMI. Cardiology recommended heart catheterization to further evaluate. Echocardiogram showed normal ejection fraction. Heart catheterization showed normal coronaries. Cardiology recommended to continue medical management. At discharge patient without significant shortness of breath. No need for home oxygen. Pulmonology suspects respiratory failure related to acute on chronic diastolic CHF with COPD exacerbation. Even though the patient was positive for COVID 19, pulmonology suspects this is not active. At discharge for her CHF, the patient will continue with a 1500 cc per day fluid restriction and low-salt diet. The patient will need to monitor her weight daily. If her weight increases by more than 5 lb she is to contact cardiology or PCP for further recommendation. At discharge the patient will continue with Lasix 40 mg daily and aspirin 325 mg daily. For her COPD, the patient will continue with prednisone 20 mg 1 pill twice daily for 7 days then 1 pill once daily for 7 days. The patient will be started on COPD medication-Symbicort 2 puffs twice daily and Pro air 2 puffs 3 times a day as needed for shortness of breath. Patient will be provided CHF, COPD and COVID education. Patient will continue with fase mask use, hand washing and social distancing. Patient will be provided CDC guidelines on isolations. Recommend follow up with cardiology in 2-4 weeks to follow up this hospitalization. Recommend follow up with pulmonology in 1 week to follow up this hospitalization and continue her care. 3. Patient with hypertension. Medications was adjusted. Additional medication includes lisinopril. At discharge patient will continue with carvedilol 12.5 mg 1 pill twice daily and lisinopril 10 mg daily. Recommend to maintain blood pressure less than 130/80. Further adjustment in medication can be done by her PCP or cardiology. 4. Patient with hypothyroidism. At discharge patient will continue with levothyroxine 50 mcg daily. 5. Patient with Crohn's colitis. At discharge she will continue with sulfasalazine as directed. 6. Patient with GERD. At discharge she will continue with Protonix [address] scan revealed bilateral thyroid masses and left superior mediastinal mass. It is recommended as an outpatient that she had a thyroid ultrasound to further evaluate this. This can be done with the help of her PCP. 8. Patient with hyperlipidemia. LDL 99. At discharge she will continue with Lipitor 10 mg daily. Recommend to recheck fasting lipid panel in 4-6 weeks to monitor progress. Further adjustment can be done by her PCP or cardiology. Diet: AHA (1500 cc per day fluid restriction) Activity: Ad david Followup: Jaja Solis [Primary Care Provider] - Time spent managing pt's care (in minutes): 55
[2020-01-21 11:05] VITALS: O2SAT 95
[2020-01-21 11:31] VITALS: BP 154/44; TEMP 98.3
[2020-01-21] MEDS ORDERED: carvediloL 12.5 MG TAB PO SCH (18:00)
[2020-01-21] MEDS ORDERED: carvediloL 25 MG TAB PO SCH (18:00)
[2020-01-22] MEDS ORDERED: lisinopriL 10 MG TAB PO SCH (09:00)
== END 2020-01-21 11:20 | disposition home or self-care (01) | DRG 208 ==
LOC: ER 11:26 → ERHOLD 16:07 → 3RD-ICU 19:26
PROVIDERS: ADMIT Hospitalist; ATTEND Family Medicine
PROC: 5A1935Z Respiratory Ventilation, Less than 24 Consecutive Hours (ICD-10-PCS; principal; 2020-01-17)
PROC: 4A023N7 Measurement of Cardiac Sampling and Pressure, Left Heart, Percutaneous Approach (ICD-10-PCS; 2020-01-20)
PROC: B2111ZZ Fluoroscopy of Multiple Coronary Arteries using Low Osmolar Contrast (ICD-10-PCS; 2020-01-20)
DX: J96.01 Acute respiratory failure with hypoxia (principal); U07.1 COVID-19; I21.4 Non-ST elevation (NSTEMI) myocardial infarction; J12.89 Other viral pneumonia; I50.23 Acute on chronic systolic (congestive) heart failure; J98.59 Other diseases of mediastinum, not elsewhere classified; J44.0 Chronic obstructive pulmonary disease with (acute) lower respiratory infection; K50.90 Crohn's disease, unspecified, without complications; J44.1 Chronic obstructive pulmonary disease with (acute) exacerbation; I11.0 Hypertensive heart disease with heart failure; E03.9 Hypothyroidism, unspecified; F41.9 Anxiety disorder, unspecified; I25.10 Atherosclerotic heart disease of native coronary artery without angina pectoris; E78.5 Hyperlipidemia, unspecified; E07.9 Disorder of thyroid, unspecified; K21.9 Gastro-esophageal reflux disease without esophagitis; Z79.52 Long term (current) use of systemic steroids; Z79.890 Hormone replacement therapy; Z79.82 Long term (current) use of aspirin; Z79.899 Other long term (current) drug therapy
CPT/HCPCS: 36415; 51702; 70450; 71045; 71275; 80048; 80053; 80061; 80076; 82805; 82947; 83605; 83735; 83880; 84100; 84132; 84145; 84484; 85025; 85610; 85730; 93005; 93306; 93454; 94002; 94003; 94760; 94762; 99291; 99292; C1893; J0360; J0456; J0696; J1644; J1650; J1940; J2250; J2704; J2920; J2930; J3010; J7030; J7040; J7050; J7512; Q9967; U0002; U0003